=== PATIENT | male | born 1935 | race Caucasian/White ===

== ENCOUNTER 2016-09-06 11:14 | Outpatient (CLI) | payer MEDICARE, OTHER ==
[2016-09-06] VITALS (17 sets, daily range): BP systolic 103–149; BP diastolic 67–89; PULSE 75–107
[~2016-09-06] VITALS: Ht 177.8 cm; Wt 81.6 kg
[2016-09-06] MEDS ORDERED: ZOCOR 20MG20 MG PO (12:09)
[2016-09-06] MEDS ORDERED: LOTENSIN 1010 MG/TAB PO (12:10)
[2016-09-06] MEDS ORDERED: THEO-DUR 3300 MG/TAB PO (12:10)
[2016-09-06] MEDS ORDERED: PROSCAR 5MG5 MG PO (12:11)
[2016-09-06] MEDS ORDERED: AMITRIPTYLINE H10 M1 PO (12:13)
[2016-09-06] MEDS ORDERED: SINGULAIR 110 MG/TAB PO (12:14)
== END 2016-09-06 16:35 | disposition home or self-care (01) ==
LOC: COL.RAD 11:14
DX: R91.8 Other nonspecific abnormal finding of lung field (principal); R59.0 Localized enlarged lymph nodes; D61.818 Other pancytopenia; D69.6 Thrombocytopenia, unspecified; D64.9 Anemia, unspecified; I10 Essential (primary) hypertension; E78.5 Hyperlipidemia, unspecified; Z85.118 Personal history of other malignant neoplasm of bronchus and lung; Z90.2 Acquired absence of lung [part of]

== ENCOUNTER 2016-10-06 09:45 | Day surgery (SDC) | payer MEDICARE, OTHER ==
[~2016-10-06] VITALS: Ht 177.8 cm; Wt 79.5 kg
[~2016-10-06 09:45] MED LIST: AMITRIPTYLINE H10 M1 PO; LOTENSIN 1010 MG/TAB PO; PROSCAR 5MG5 MG PO; SINGULAIR 110 MG/TAB PO; THEO-DUR 3300 MG/TAB PO; ZOCOR 20MG20 MG PO
[2016-10-06 11:26] VITALS: BP 127/83; PULSE 103; TEMP 97.2
[2016-10-06 12:40] VITALS: BP 112/68; PULSE 89; TEMP 98.4
[2016-10-06 12:55] VITALS: BP 113/69; PULSE 97
== END 2016-10-06 13:10 | disposition home or self-care (01) ==
LOC: SDCO 09:45
DX: C34.11 Malignant neoplasm of upper lobe, right bronchus or lung (principal); I10 Essential (primary) hypertension; J44.9 Chronic obstructive pulmonary disease, unspecified; N40.0 Benign prostatic hyperplasia without lower urinary tract symptoms; Z87.891 Personal history of nicotine dependence; D61.818 Other pancytopenia
CPT/HCPCS: J2704; J2920